=== PATIENT | female | born 1970 | race Caucasian/White ===

== ENCOUNTER 2023-12-10 08:56 | Emergency (ER) | payer BC ==
[2023-12-10 09:09] VITALS: BP 146/92; PULSE 100; RESP 16; TEMP 97.7; BMI 27.4
== END 2023-12-10 10:23 | disposition home or self-care (01) ==
LOC: JERFT 08:56
DX: M79.642 Pain in left hand (principal); W22.8XXA Striking against or struck by other objects, initial encounter; Y93.01 Activity, walking, marching and hiking
CPT/HCPCS: 73110-TC-LT-FY; 73130-TC-LT-FY; 99283-25